=== PATIENT | female | born 1950 | race Caucasian/White ===

== ENCOUNTER 2016-03-07 10:48 | Outpatient (CLI) | payer MEDICARE | END 2016-03-07 10:49 | disposition home or self-care (01) | LOC: HPCALD 10:48 | PROVIDERS: ATTEND Family Medicine | DX: E55.9 Vitamin D deficiency, unspecified (principal) | CPT/HCPCS: 36415; 82306 ==

== ENCOUNTER 2016-06-27 10:56 | Outpatient (CLI) | payer MEDICARE ==
[2016-06-27 11:55] LABS: #Basophils 0.1 thou/uL (0.0-0.2); #Eosinphils 0.3 thou/uL (0.0-0.7); #Lymphocytes 1.3 thou/uL (1.20-3.40); #Monocytes 0.5 thou/uL (0.11-0.59); #Neutrophils 3.2 thou/uL (1.40-6.50); %Basophils 1.6 % (0.0-1.0); %Eosinophils 5.8 % (0.0-10.0); %Lymphocytes 24.2 % (21.0-51.0); %Monocytes 9.9 % (0.0-10.0); %Neutrophils 58.5 % (42.0-75.0); Hemoglobin 16.6 g/dL (12.0-16.0); Mean Corpuscular HGB CONC 33.1 g/dL (32.0-36.0); Mean Corpuscular Hemoglobin 28.9 pg (27.0-31.0); Mean Corpuscular Volume 87.3 fl (81.0-99.0); Mean Platelet Volume 6.6 fL (7.4-10.4); Platelet Count 277 thou/uL (130-400); RBC Distribution Width 13.2 % (11.5-14.5); Red Blood Cell (RBC) Count 5.73 mill/uL (4.20-5.40); White Blood Cell (WBC) Count 5.5 thou/uL (4.8-10.8)
[2016-06-27 12:24] LABS: ALT (SGPT) 21 U/L (8-55); AST (SGOT) 25 U/L (5-34); Albumin 4.4 g/dL (3.4-4.8); Alkaline Phosphatase 93 U/L (40-150); Anion Gap 13 mmol/L (10-20); BUN (Urea Nitrogen) 8 mg/dL (9.8-20.1); Bilirubin, Total 0.6 mg/dL (0.2-1.2); Calc. Creatinine Clearance 0 mL/min (70-130); Calcium 9.4 mg/dL (7.8-10.44); Carbon Dioxide 26 mmol/L (23-31); Cardiac Risk 4.7 (Less than 4.5); Chloride 108 mmol/L (98-107); Cholesterol 203 mg/dL (< 200 Desired); Estimated GFR-MDRD 74; Globulin 2.9 g/dL (2.4-3.5); Glucose 97 mg/dL (80-115); HDL Cholesterol 43 mg/dL (>60 Neg Risk); LDL Cholesterol, Calculated 130 mg/dL; Potassium 3.8 mmol/L (3.5-5.1); Protein, Total 7.3 g/dL (5.8-8.1); Sodium 143 mmol/L (136-145); Triglycerides 149 mg/dL (Less than 150)
[2016-06-27 12:31] LABS: Thyroid Stimulating Hormone 1.7428 uIU/mL (0.35-4.94); Vitamin D, 25 Hydroxy 39.1 ng/mL (> 30.0)
== END 2016-06-27 10:57 ==
LOC: HPCALD 10:56
PROVIDERS: ATTEND Family Medicine
DX: I10 Essential (primary) hypertension (principal); E55.9 Vitamin D deficiency, unspecified; R60.9 Edema, unspecified
CPT/HCPCS: 36415; 80053; 80061; 82306; 83880; 84443; 85025

== ENCOUNTER 2016-06-28 08:33 | Outpatient (CLI) | payer MEDICARE ==
[2016-06-28 12:14] LABS: #Basophils 0.1 thou/uL (0.0-0.2); #Eosinphils 0.3 thou/uL (0.0-0.7); #Lymphocytes 1.4 thou/uL (1.20-3.40); #Monocytes 0.6 thou/uL (0.11-0.59); #Neutrophils 2.5 thou/uL (1.40-6.50); %Basophils 1.9 % (0.0-1.0); %Lymphocytes 29.3 % (21.0-51.0); %Monocytes 11.4 % (0.0-10.0); %Neutrophils 50.4 % (42.0-75.0); Hemoglobin 15.4 g/dL (12.0-16.0); Mean Corpuscular HGB CONC 33.2 g/dL (32.0-36.0); Mean Corpuscular Hemoglobin 28.9 pg (27.0-31.0); Platelet Count 251 thou/uL (130-400); RBC Distribution Width 12.8 % (11.5-14.5); Red Blood Cell (RBC) Count 5.31 mill/uL (4.20-5.40); White Blood Cell (WBC) Count 4.9 thou/uL (4.8-10.8)
== END 2016-06-28 08:34 | disposition home or self-care (01) ==
LOC: HPCALD 08:33
PROVIDERS: ATTEND Family Medicine
DX: D75.1 Secondary polycythemia (principal)
CPT/HCPCS: 36415; 82668; 85025

== ENCOUNTER 2016-07-22 05:33 | Emergency (ER) | payer MEDICARE ==
[2016-07-22] MEDS ORDERED: Pantoprazole 40 MG VIAL ONE (05:59)
[2016-07-22] MEDS ORDERED: Ondansetron HCl/PF 4 MG/2 ML Vial ONE (05:59)
[2016-07-22 06:17] LABS: Bilirubin Negative (Negative); Blood, Urine Negative (Negative); Clarity Slightly Cloudy (Clear); Glucose, Urine (Dipstick) Negative (Negative); Leukocyte Trace (Negative); Nitrite Negative (Negative); Protein, Urine (Dipstick) Trace mg/dL (Neg-Trace); Urobilinogen 0.2 mg/dL (0.2-1.0)
[2016-07-22 06:26] LABS: Bacteria/HPF 1+ HPF (None Seen); RBC/HPF 0-3 HPF (0-3); Squamous Epithelial 0-3 HPF (0-3)
[2016-07-22 07:06] LABS: Anion Gap 17 mmol/L (10-20); BUN (Urea Nitrogen) 16 mg/dL (9.8-20.1); Calc. Creatinine Clearance 0 mL/min (70-130); Calcium 8.8 mg/dL (7.8-10.44); Carbon Dioxide 21 mmol/L (23-31); Chloride 106 mmol/L (98-107); Estimated GFR-MDRD 82; Glucose 108 mg/dL (80-115); Potassium 4.5 mmol/L (3.5-5.1); Sodium 139 mmol/L (136-145)
[2016-07-22 07:10] LABS: #Basophils 0.2 thou/uL (0.0-0.2); #Eosinphils 0.2 thou/uL (0.0-0.7); #Lymphocytes 0.3 thou/uL (1.20-3.40); #Monocytes 0.7 thou/uL (0.11-0.59); #Neutrophils 13.9 thou/uL (1.40-6.50); %Lymphocytes 2.2 % (21.0-51.0); %Monocytes 4.6 % (0.0-10.0); %Neutrophils 91.1 % (42.0-75.0); Hemoglobin 17.6 g/dL (12.0-16.0); Mean Corpuscular HGB CONC 33.7 g/dL (32.0-36.0); Mean Corpuscular Hemoglobin 28.9 pg (27.0-31.0); Mean Corpuscular Volume 85.8 fl (81.0-99.0); Mean Platelet Volume 6.4 fL (7.4-10.4); Platelet Count 273 thou/uL (130-400); Red Blood Cell (RBC) Count 6.08 mill/uL (4.20-5.40); White Blood Cell (WBC) Count 15.3 thou/uL (4.8-10.8)
== END 2016-07-22 07:25 | disposition home or self-care (01) ==
LOC: BURERS 05:33
DX: K52.9 Noninfective gastroenteritis and colitis, unspecified (principal); E03.9 Hypothyroidism, unspecified; I10 Essential (primary) hypertension; Z79.899 Other long term (current) drug therapy
CPT/HCPCS: 80048; 81003; 81015; 85025; 96361; 96374; 96375; C9113; J2405

== ENCOUNTER 2016-12-30 10:14 | Outpatient (CLI) | payer MEDICARE ==
--- NOTE | 2016-12-30 13:44 | RAD ---
RIGHT FOOT 3 VIEWS: DATE: 12/30/16. FINDINGS: No acute fracture was seen. There was no worrisome periosteal reaction. There is slight hallux robbin cynthia with bunion deformity along the medial 1st metatarsal head. There is overlying soft tissue swel ling here. All bones appear intact. A large calcaneal spur is noted. There is some slight fragmen tation of bone along the dorsal surface of the tarsal metatarsal joint seen on the lateral view. IMPRESSION: Chronic changes as noted with no acute findings. POS: HOME
== END 2016-12-30 10:15 | disposition home or self-care (01) ==
LOC: BURRAD 10:14
PROVIDERS: ATTEND Family Medicine
DX: M79.671 Pain in right foot (principal)

== ENCOUNTER 2018-05-23 09:24 | Emergency (ER) | payer MEDICARE ==
[2018-05-23 09:59] LABS: #Basophils 0.1 thou/uL (0.0-0.2); #Lymphocytes 1.7 thou/uL (1.20-3.40); #Neutrophils 6.7 thou/uL (1.40-6.50); %Basophils 0.9 % (0.0-1.0); %Lymphocytes 17.9 % (21.0-51.0); %Monocytes 10.1 % (0.0-10.0); Hemoglobin 16.2 g/dL (12.0-16.0); Mean Corpuscular HGB CONC 32.1 g/dL (32.0-36.0); Mean Corpuscular Hemoglobin 28.5 pg (27.0-31.0); Mean Corpuscular Volume 88.8 fL (78.0-98.0); Mean Platelet Volume 6.7 fL (7.4-10.4); Platelet Count 221 thou/uL (130-400); RBC Distribution Width 12.7 % (11.5-14.5); Red Blood Cell (RBC) Count 5.68 mill/uL (4.20-5.40); White Blood Cell (WBC) Count 9.5 thou/uL (4.8-10.8)
[2018-05-23 10:15] LABS: ALT (SGPT) 20 U/L (8-55); AST (SGOT) 24 U/L (5-34); Albumin 4.1 g/dL (3.4-4.8); Alkaline Phosphatase 82 U/L (40-150); Anion Gap 16 mmol/L (10-20); BUN (Urea Nitrogen) 9 mg/dL (9.8-20.1); Bilirubin, Total 0.5 mg/dL (0.2-1.2); Calc. Creatinine Clearance 0 mL/min (70-130); Calcium 9.4 mg/dL (7.8-10.44); Carbon Dioxide 27 mmol/L (23-31); Chloride 99 mmol/L (98-107); Estimated GFR-MDRD 78; Globulin 3.1 g/dL (2.4-3.5); Glucose 113 mg/dL (80-115); Protein, Total 7.2 g/dL (6.0-8.3); Sodium 139 mmol/L (136-145)
[2018-05-23] MEDS ORDERED: Potassium Chloride 20 MEQ in Premix Bag 1 BAG IVPB SCH (11:00)
[2018-05-23] MEDS ORDERED: Potassium Chloride 20 MEQ/100 ML PREMIX BAG ONE (11:27)
[2018-05-23] MEDS ORDERED: Potassium Chloride 20 MEQ TAB ONE ×2 (11:29)
[2018-05-23] MEDS ORDERED: Acetaminophen 325 MG TAB ONE (11:59)
[2018-05-23] MEDS ORDERED: cefTRIAXone\\ROCEPHIN 1 GM VIAL ONE ×2 (12:12→12:14)
[2018-05-23] MEDS ORDERED: Sodium Chloride 0.9% 100 ML ONE ×2 (12:13→12:48)
--- NOTE | 2018-05-23 12:14 | CT ---
CT ANGIO OF CHEST WITH CONTRAST: Date: 05/23/[address] of the chest was done for evaluation of an elevated D-Dimer. Axial slices were acquired, fo llowed by various reconstructions through the pulmonary arteries. Unfortunately, the timing of the bolus is suboptimal, with more of the contrast being in the arterial system of the systemic arteries. Thus, pulmonary artery opacification is poor. There are no gross de fects in the largest pulmonary artery branches, but once one gets beyond the medium sized arteries or smaller, the density of contrast is not sufficient to rule in or out pulmonary embolism. The aorta is ectatic, but there is no focal aneurysm. The patient has an aberrant right subclavian ar nick that crosses the midline between the esophagus and the thoracic spine. The patient's thyroid gla nd is not seen completely, but is obviously large. No mediastinal mass or adenopathy of concern was s een. Streaky areas in the lung bases are most likely atelectasis. No lobar consolidation or significa nt effusion seen. The heart is large. Some calcification is suggested in at least the LAD. The liver is generous in size (though not seen completely). It is low in density suggesting fatty inf iltration. The spleen is normal in size. A small hiatal hernia was detected. No adrenal masses were s een. The upper pole of each kidney was noted and there are two exophytic cysts in the upper pole of t he left kidney. IMPRESSION: 1. Low sensitivity study due to bolus timing. No gross evidence of pulmonary embolism in the largest of arteries. Emboli in medium sized arteries or less would be missed. 2. Cardiomegaly. 3. Enlargement to the thyroid gland. 4. Aberrant right subclavian artery. 5. Small hiatal hernia. 6. Mild hepatomegaly with diffuse fatty infiltration. 7. Left renal cysts. POS: HOME
[2018-05-23] MEDS ORDERED: Azithromycin 500 MG VIAL ONE (12:47)
[2018-05-23] MEDS ORDERED: Ondansetron PF 4 MG/2 ML Vial ONE (13:30)
[2018-05-23 13:41] LABS: Troponin I 0.016 ng/mL (< 0.028)
[2018-05-23 13:43] LABS: Bilirubin Negative (Negative); Blood, Urine Negative (Negative); Clarity Clear (Clear); Glucose, Urine (Dipstick) Negative (Negative); Leukocyte Negative (Negative); Nitrite Negative (Negative); Protein, Urine (Dipstick) 30 mg/dL (Neg-Trace); Specific Gravity, Urine 1.005 (1.002-1.036); Urobilinogen 0.2 mg/dL (0.2-1.0)
[2018-05-23 13:45] LABS: Bacteria/HPF Rare-Few HPF (None Seen); RBC/HPF 0-3 HPF (0-3); Squamous Epithelial 0-3 HPF (0-3); WBC/HPF 0-3 HPF (0-3)
--- NOTE | 2018-05-23 14:36 | RAD ---
PORTABLE CHEST: Date: 05-23-18 FINDINGS: An AP portable film at 0958 is compared with a 02-09-16 study. The heart is borderline in size. There is no vascular congestion, edema, or pleural effusion. Some li near streaking in the right base is typical of atelectasis. The right hemidiaphragm is elevated, but it was before. It is perhaps a little more so now. The mediastinum appears normal. A cardiac pacer is in place as before. IMPRESSION: 1. Borderline heart size without findings of CHF. 2. Elevated right hemidiaphragm, chronic. Some basilar atelectasis over it. POS: HOME
== END 2018-05-23 15:15 | disposition short-term general hospital (02) ==
LOC: BURERS 09:24
DX: R09.02 Hypoxemia (principal); R50.9 Fever, unspecified; E03.9 Hypothyroidism, unspecified; I10 Essential (primary) hypertension; Z79.899 Other long term (current) drug therapy; Z79.82 Long term (current) use of aspirin; Z79.51 Long term (current) use of inhaled steroids
CPT/HCPCS: 36415; 71045; 71275; 80053; 81003; 81015; 83605; 83880; 84443; 84484; 85025; 85379; 87040; 87086; 93005; 96361; 96365; 96366; 96375; J0456; J0696; J2405; J3480; J7050

== ENCOUNTER 2019-01-25 14:10 | Outpatient (CLI) | payer MEDICARE ==
--- NOTE | 2019-01-25 15:04 | RAD ---
RIGHT WRIST THREE VIEWS: 01/25/2019 FINDINGS: No fracture or area of bony destruction is seen. The carpal bones appear normal. The distal radius an d ulna appear normal. IMPRESSION: No acute findings. POS: HOME
== END 2019-01-25 14:11 | disposition home or self-care (01) ==
LOC: BURRAD 14:10
PROVIDERS: ATTEND Family Medicine
DX: R22.31 Localized swelling, mass and lump, right upper limb (principal)

== ENCOUNTER → 2019-11-04 | Emergency (ER) | payer MEDICARE ==
[~2019-11-04] MED LIST: Ciprofloxacin Lactate/D5W 400 mg/200 ml Premix ONE; Ondansetron ODT 4 MG TAB ONE; metroNIDAZOLE 500 MG/100 ML BAG ONE
[2019-11-04 22:54] LABS: Clarity Clear (Clear)
[2019-11-04 22:59] LABS: Bilirubin Unable to Interpret (Negative); Blood, Urine Unable to Interpret (Negative); Glucose, Urine (Dipstick) Unable to Interpret mg/dL (Negative); Ketone, Urine Unable to Interpret mg/dL (Negative); Leukocyte Unable to Interpret (Negative); Nitrite Unable to Interpret (Negative); Protein, Urine (Dipstick) Unable to Interpret mg/dL (Neg-Trace); Specific Gravity, Urine 1.013 (1.002-1.036); Urobilinogen UNABLE TO INTERPRET mg/dL (Less than 2)
[2019-11-04 23:01] LABS: Bacteria/HPF Rare-Few HPF (None Seen); RBC/HPF None Seen HPF (0-3); WBC/HPF 0-3 HPF (0-3)
[2019-11-04 23:19] LABS: #Basophils 0.1 thou/uL (0.0-0.2); #Lymphocytes 1.4 thou/uL (1.20-3.40); #Monocytes 0.8 thou/uL (0.11-0.59); #Neutrophils 8.3 thou/uL (1.40-6.50); %Basophils 0.5 % (0.0-1.0); %Eosinophils 0.3 % (0.0-10.0); %Lymphocytes 13.3 % (21.0-51.0); %Monocytes 7.8 % (0.0-10.0); %Neutrophils 78.1 % (42.0-75.0); Hemoglobin 15.5 g/dL (12.0-16.0); Mean Corpuscular HGB CONC 31.7 g/dL (32.0-36.0); Mean Corpuscular Hemoglobin 29.6 pg (27.0-31.0); Mean Corpuscular Volume 93.2 fL (78.0-98.0); Mean Platelet Volume 6.9 fL (7.4-10.4); Platelet Count 220 thou/uL (130-400); RBC Distribution Width 11.9 % (11.5-14.5); Red Blood Cell (RBC) Count 5.24 mill/uL (4.20-5.40); White Blood Cell (WBC) Count 10.6 thou/uL (4.8-10.8)
[2019-11-04 23:35] LABS: ALT (SGPT) 15 U/L (8-55); AST (SGOT) 18 U/L (5-34); Albumin 4.3 g/dL (3.4-4.8); Alkaline Phosphatase 86 U/L (40-110); Anion Gap 17 mmol/L (10-20); BUN (Urea Nitrogen) 5 mg/dL (9.8-20.1); Bilirubin, Total 0.8 mg/dL (0.2-1.2); Calc. Creatinine Clearance 0 mL/min (70-130); Calcium 9.4 mg/dL (7.8-10.44); Carbon Dioxide 23 mmol/L (23-31); Chloride 94 mmol/L (98-107); Estimated GFR-MDRD 88; Globulin 3.3 g/dL (2.4-3.5); Glucose 147 mg/dL (83-110); Lipase 12 U/L (8-78); Potassium 3.4 mmol/L (3.5-5.1); Protein, Total 7.6 g/dL (6.0-8.3); Sodium 131 mmol/L (136-145)
--- NOTE | 2019-11-05 07:30 | CT ---
PRELIMINARY REPORT/[facility]/EMERGENCY AFTER HOURS PROCEDURE: This report was discussed with MD Rachel Lam by Natalee Almendarez on Nov 05, 2019 00:36:00 CDT. Addendum electronically signed by Natalee Almendarez on November 05, 2019 12:35:35 AM CDT EXAM: CT Abdomen and Pelvis with Intravenous Contrast CLINICAL HISTORY: LLQ ABD PAIN THAT STARTED THIS PAST WEEKEND TECHNIQUE: Axial computed tomography images of the abdomen and pelvis with intravenous contrast. CONTRAST: With; ISO 370, 100mL COMPARISON: None provided. FINDINGS: LUNG BASES: No basilar airspace consolidation or pleural effusion. Bibasilar interstitial opacities. Cardiomega ly. Partially visualized cardiac leads within the right heart and coronary sinus. LIVER: Unremarkable. GALLBLADDER AND BILE DUCTS: Surgically absent. No ductal dilation. PANCREAS: Unremarkable. SPLEEN: Unremarkable. ADRENAL GLANDS: Unremarkable. KIDNEYS, URETERS, AND BLADDER: Bilateral simple renal cysts. No hydronephrosis or nephrolithiasis. No ureteral or bladder calculi. STOMACH AND BOWEL: Small hiatal hernia. No obstruction. No wall thickening. Scattered colonic diverticuli probably inv olving the sigmoid colon. Focal pericolonic stranding, coronal image 107, axial image 76. Focal dis tended rounded air-filled structure may represent dilated diverticulum versus contained perforation APPENDIX: No CT evidence for appendicitis. PERITONEUM: No free fluid. No free air. LYMPH NODES: No lymphadenopathy. REPRODUCTIVE: Unremarkable as visualized. VASCULATURE: No aortic aneurysm. BONES: No fracture or suspicious osseous abnormality. Moderate multilevel degenerative changes of the spine . ABDOMINAL WALL AND SOFT TISSUES: Unremarkable. IMPRESSION: Findings consistent with acute sigmoid colonic diverticulitis as described above. Cardiomegaly bibasilar interstitial opacities which may represent edema. ELECTRONICALLY SIGNED BY: Deny Young DO Nov 05, 2019 12:31:28 AM CDT This report is intended for review by the ordering physician only, in accordance of law. If you recei ve this report in error, please call [facility] at [phone]. FINAL REPORT EMERGENCY AFTER HOURS CT ABDOMEN AND PELVIS WITH CONTRAST: Date: 11/05/[address] of the abdomen and pelvis was done to evaluate left lower quadrant pain. There is generalized haziness in the lung bases bilaterally. This seems increased when compared with a 2019 CT of the chest. This may represent a small amount of edema and/or atelectasis. There are no l arge effusions, however. The right hemidiaphragm is elevated, which is chronic in this patient. A mor e focal area of stranding at the top of the right hemidiaphragm is probably compressive atelectasis, though infection is not completely excluded. The liver, spleen, pancreas, adrenal glands, and abdominal aorta showed no acute findings. There has been a prior cholecystectomy. There is no sign of renal obstruction. Bilateral renal cysts are presen t, the largest being 3.0 cm in the left kidney. The major finding on the study is colonic diverticulosis with some areas in the sigmoid region that a re more prominent, a little thicker, and may have a little bit of stranding around them. There is one diverticulum in particular that is larger than the rest. The findings indicate probable early divert iculitis. There were one or two frames where I could not tell if a pocket of gas was extraluminal or actually in a thin-walled diverticulum. There was no drainable abscess or large amount of free air pr esent. No substantial fluid was seen in the region. The pelvis otherwise showed no pelvic masses or f luid collections. IMPRESSION: 1. Findings consistent with sigmoid diverticulitis. 2. Chronic elevation of the right hemidiaphragm with either compressive atelectasis over it or a sma ll infiltrate. Findings in agreement with preliminary reading by [facility]. POS: HOME
--- NOTE | 2019-11-05 07:32 | RAD ---
PORTABLE CHEST: Date: 11/04/2019 An AP portable film at 2327 hours is compared with the 05/23/2018 study. Elevation of the right hemidiaphragm is chronic. There are no current infiltrates in the lungs. No la rge effusions are seen. The heart is stable in size and there are no congestive findings. A cardiac p acer is in place as before. The generator to it has been changed in the interval. IMPRESSION: Chronic findings, but no acute changes. POS: HOME
== END ==
LOC: BURERS 22:37
DX: K57.32 Diverticulitis of large intestine without perforation or abscess without bleeding (principal); E03.9 Hypothyroidism, unspecified; I10 Essential (primary) hypertension; Z79.899 Other long term (current) drug therapy
CPT/HCPCS: 71045; 74177; 80053; 81003; 81015; 83605; 83690; 83880; 84484; 85025; 87040; 87086; 93005; 96361; 96374; 96375; J0744; Q0162